=== PATIENT | female | born 1960 | race Caucasian/White ===

== ENCOUNTER 2019-07-24 07:58 | Observation (INO) | payer BC ==
--- OUTSIDE RECORDS SUMMARY | 2019-07-24 08:04 | XMS REPORT | Continuity of Care Document ---
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 Medicine Problems Description No Information Available Social History Type Date Description Comments Sex Unknown Tobacco Use Start: Unknown Never Smoked Cigarettes Tobacco Use Start: Unknown Never Smoked Cigars Tobacco Use Start: Unknown Never Smoked A Pipe Smokeless Tobacco Never Used Smokeless Tobacco ETOH Use Currently occasionally consumes alcohol Allergies, Adverse Reactions, Alerts Active Allergies Reaction Severity Comments Date Prednisone Hives 07/17/2019 Medications Active Medications SIG Qnty Indications Ordering Provider Date Ondansetron 4mg Unknown Tablets Dispers Immunizations Description No Information Available Vital Signs Date Vital Result Comment 07/17/2019 9:25am Weight 185.00 lb Weight 83.916 kg Height 70 inches 5'10" Height in cm's 177.8 cm BMI (Body Mass Index) 26.5 kg/m2 Results Description No Information Available Procedures Date Code Description Status 07/17/2019 32904 Tympanometry Completed 07/17/2019 95507 Comprehensive Audiogram Completed Medical Devices Description No Information Available Encounters Type Date Location Provider Dx Diagnosis Office Visit 07/17/2019 [facility] 07-01-2019 Lorenzo Moreno MD R42 Dizziness and 9:30a giddiness H90.5 Unspecified sensorineural hearing loss Assessments Date Code Description Provider 07/17/2019 R42 Dizziness and giddiness Lorenzo Moreno MD 07/17/2019 H90.5 Unspecified sensorineural hearing loss Lorenzo Moreno MD Plan of Treatment 07/17/2019 - Lorenzo Moreno MDR42 Dizziness and giddinessComments:Her symptoms that are most recent, do not represent in my opinion a high probability of being an inner ear disorder, this may be related to some gastrointestinal issues , may be related to anxiety symptoms. She is going to have a workup done by her primary care physician at this point I suspect that she may also introduced the idea that this could be sort of us anxiety panic disorder that may be contributing to her symptoms her ears appear to be stable and no further investigations and those ears are necessary at this timeH90.5 Unspecified sensorineural hearing loss Functional Status Description No Information Available Mental Status Description No Information Available Referrals Description No Information Available
--- OUTSIDE RECORDS SUMMARY | 2019-07-24 08:04 | XMS REPORT | Continuity of Care Document ---
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 Medicine Problems Description No Information Available Social History Type Date Description Comments Sex Unknown ETOH Use Social Alcohol Tobacco Use Start: Unknown Patient has never smoked Smoking Status Reviewed: 07/17/19 Patient has never smoked Enjoy Exercising Enjoys exercising Exercise Type/Frequency Exercises regularly walking Allergies, Adverse Reactions, Alerts Active Allergies Reaction Severity Comments Date Prednisone heartburn/acid reflux 07/17/2019 Cat Dander 07/17/2019 Mold 07/17/2019 Medications Description No Active Medications Immunizations Description No Information Available Vital Signs Date Vital Result Comment 07/17/2019 3:19pm BP Systolic 110 mmHg BP Diastolic 70 mmHg Heart Rate 84 /min Body Temperature 97.9 F Respiratory Rate 16 /min Height 70 inches 5'10" Weight 185.00 lb BMI (Body Mass Index) 26.5 kg/m2 Results Test Acquired Date Facility Test Result H/L Range Note Laboratory test 07/10/2019 [facility] Lactic Acid 1.1 mmol/L Normal 0.5-2.0 1 finding Comp Metabolic 07/10/2019 [facility] Sodium 140 mmol/L Normal 135-145 Panel Potassium 3.6 mmol/L Normal 3.5-5.0 Chloride 106 mmol/L Normal 101-111 Co2 Carbon Dioxide 26 mmol/L Normal 22-32 Anion Gap 8 mmol/L Normal 2-11 Glucose 102 mg/dL High 70-100 Blood Urea Nitrogen 16 mg/dL Normal 6-24 Creatinine 0.65 mg/dL Normal 0.51-0.95 BUN/Creatinine Ratio 24.6 High 8-20 Calcium 9.4 mg/dL Normal 8.6-10.3 Total Protein 6.5 g/dL Normal 6.4-8.9 Albumin 4.3 g/dL Normal 3.2-5.2 Globulin 2.2 g/dL Normal 2-4 Albumin/Globulin Ratio 2.0 Normal 1-3 Total Bilirubin 0.60 mg/dL Normal 0.2-1.0 Alkaline Phosphatase 78 U/L Normal 34-104 Alt 15 U/L Normal 7-52 Ast 15 U/L Normal 13-39 Egfr Non- 92.7 >60 Egfr 112.1 >60 2 Laboratory test finding 07/10/2019 [facility] Magnesium 2.1 mg/dL Normal 1.9- 2.7 Troponin-I (TnI) 0.00 ng/mL <0.03 3 TSH (Thyroid Stim Horm) 0.63 mcIU/mL Normal 0.34-5.60 1 [facility] Severe Sepsis and Septic Shock Management Bundle Measure requires all lactic acids initially measuring >2.0 mmol/L be repeated. 2 Because ethnic data is not always readily available, this report includes an eGFR for both -Americans and non- Americans. The National Kidney Disease Education Program (NKDEP) does not endorse the use of the MDRD equation for patients that are not between the ages of 18 and 70, are , have extremes of body size, muscle mass, or nutritional status, or are non- or non-. According to the National Kidney Foundation, irrespective of diagnosis, the stage of the disease is based on the level of kidney function: Stage Description GFR(mL/min/1.73 m(2)) 1 Kidney damage with normal or decreased GFR 90 2 Kidney damage with mild decrease in GFR 60-89 3 Moderate decrease in GFR 30-59 4 Severe decrease in GFR 15-29 5 Kidney failure <15 (or dialysis) 3 Troponin-I testing on Plasma Separator Tubes (PST) has a known false positive rate of 0.20-0.40%. All positive troponins reflex immediately to secondary confirmatory testing. Using the Plink DxI 800 Access Immunoassay systems, the 99th percentile upper reference limit was demonstrated to be < 0.03 ng/mL. Procedures Date Code Description Status 07/01/2016 18069082 Mammogram Completed Medical Devices Description No Information Available Encounters Description No Information Available Assessments Date Code Description Provider 07/17/2019 F43.22 Adjustment disorder with anxiety Alexis Mcginnis MD Plan of Treatment 07/17/2019 - Alexis Mcginnis MDF43.22 Adjustment disorder with anxietyAllNew Medication:No Active Medications -Comments:Medication Management Patient Understands medications she's taking? Yes No Are there Barriers to Adherence? Yes No Has the patient been asked about herbal supplements and therapies, and OTC meds? Yes No Functional Status Description No Information Available Mental Status Description No Information Available Referrals Description No Information Available
[2019-07-24] MEDS ORDERED: NS 0.9% 1000 ML** 1,000 ML IV ONE ×3 (08:23→12:30)
--- NOTE | 2019-07-24 08:24 | ED ---
Abdominal Pain/Female - HPI Summary HPI Summary: 59 year old F [facility] accompanied by spouse complains of gaseous pain since last night 07/23/2019 that led to an uncontrollable passing of a large amount of bright red blood rectally. Patient reports attempting to have a bowel movement at midnight to no avail and experienced an episode of diaphoresis as she stood up. She experienced lower abd pain after and took marielena- seltzer which did not help. Continued attempts at bowel movements resulted in small amounts of soft stool. Episode of rectal blood passing happened at around 0600 07/24/2019. Patient denies fever, nausea, emesis, CP, dysuria, and hematuria. PMHx of sensitive stomach and vestibular neuritis. No PMHx of HTN, diabetes, hemorrhoids noted. FMHx of colon CA or cardiac issues denied. The patient rates the pain 3/10 in severity. Symptoms aggravated by nothing. Symptoms alleviated by nothing. - History of Current Complaint Chief Complaint: EDRectalPain Stated Complaint: RECTAL BLEEDING PER PT Time Seen by Provider: 07/24/19 08:07 Hx Obtained From: Patient Onset/Duration: Sudden Onset, Still Present Severity Currently: Mild Pain Intensity: 3 Pain Scale Used: 0-10 Numeric Location: Other - Lower abd Aggravating Factor(s): Nothing Alleviating Factor(s): Nothing Associated Signs and Symptoms: Positive: Diaphoresis, Other: - positive - uncontrollable rectal blood release negative - CP. Negative: Fever, Urinary Symptoms - negative dysuria and hematuria, Nausea, Vomiting Allergies/Adverse Reactions: Allergies Allergy/AdvReac Type Severity Reaction Status Date / Time prednisone Allergy GI Upset Verified 07/24/19 08:03 PMH/Surg Hx/FS Hx/Imm Hx Sensory History: Denies: Hx Legally Blind, Hx Deafness Opthamlomology History: Denies: Hx Legally Blind Infectious Disease History: No Infectious Disease History: Denies: Traveled Outside the [place] in Last 30 Days - Family History Known Family History: Positive: Cardiac Disease, Other - no FMHx of vestibular neuritis or colon CA - Social History Alcohol Use: Rare Substance Use Type: Reports: None Smoking Status (MU): Never Smoked Tobacco Review of Systems Positive: Skin Diaphoresis. Negative: Fever Negative: Chest Pain Positive: Abdominal Pain - lower abd, Other - episode of uncontrollable rectal blood passing . Negative: Vomiting, Nausea Negative: dysuria, hematuria All Other Systems Reviewed And Are Negative: Yes Physical Exam - Summary Physical Exam Summary: Constitutional: Well-developed, Well-nourished, Alert. (-) Distressed Skin: Warm, Dry HENT: Normocephalic; Atraumatic Eyes: Conjunctiva normal Neck: Musculoskeletal ROM normal neck. (-) JVD, (-) Stridor, (-) Tracheal deviation Cardio: Rhythm regular, rate normal, Heart sounds normal; Intact distal pulses; The pedal pulses are 2+ and symmetric. Radial pulses are 2+ and symmetric. (-) Murmur Pulmonary/Chest wall: Effort normal. (-) Respiratory distress, (-) Wheezes, (-) Rales Abd: soft, non-distended. Suprapubic/LLQ abd tenderness. Rectal: no visible hemorrhoids. CARLOS-BRBPR Musculoskeletal: (-) Edema Lymph: (-) Cervical adenopathy Neuro: Alert, Oriented x3 Psych: Mood and affect Normal Triage Information Reviewed: Yes Vital Signs On Initial Exam: Initial Vitals Temp Pulse Resp BP Pulse Ox 98.6 F 93 20 122/81 100 07/24/19 07:59 07/24/19 07:59 07/24/19 07:59 07/24/19 07:59 07/24/19 07:59 Vital Signs Reviewed: Yes Procedures - Sedation Patient Received Moderate/Deep Sedation with Procedure: No Diagnostics - Vital Signs Vital Signs Temp Pulse Resp BP Pulse Ox 07/24/19 08:10 84 117/73 98 07/24/19 08:09 81 97 07/24/19 07:59 98.6 F 93 20 122/81 100 - Laboratory Result Diagrams: 07/24/19 08:28 07/24/19 08:28 Lab Statement: Any lab studies that have been ordered have been reviewed, and results considered in the medical decision making process. - CT CT Abd/Pelvis CT Interpretation Completed By: Radiologist Summary of CT Findings: IMPRESSION: #. Probable hepatic hemangiomas. Nonemergent ultrasound of the liver suggested for. further characterization. # . Normal appendix documented. #. Suggestion of potential mild colitis involving the descending and sigmoid colon. has reviewed this report. Re-Evaluation - Re-Evaluation 1052 Re-Evaluation Time: 10:52 Change: Worse Comment: Pt had developed diarrhea and increased HR. NS given. Abdominal Pain Fem Course/Dx - Course Course Of Treatment: 59 year old F presenting to [facility] complains of gaseous pains since last night 07/23/2019 that led to an uncontrollable passing of a large amount of bright red blood rectally. Physical exam findings: Abd: Suprapubic/LLQ abd tenderness. Rectal: no visible hemorrhoids. CARLOS-BRBPR. Bloodwork results with no significant abnormalities except for H MCH, H Absolute Neuts (auto), L Absolute Lymphs (auto), L Total Protein. A CT Abd/ Pelvis shows Probable hepatic hemangiomas. Nonemergent ultrasound of the liver suggested for further characterization. Normal appendix documented. Suggestion of potential mild colitis involving the descending and sigmoid colon. In the ED course, the patient was given NS. We discussed patient care with Dr.Foor- Powell at 1220 who recommended ordering stool studies and admission for observation and GI consult. The patient will be admitted to the hospitalist, Dr. Garcia. The patient is agreeable with this plan. - Diagnoses Provider Diagnoses: Colitis, Rectal bleeding - Provider Notifications Discussed Care Of Patient With: Anila Rivera Time Discussed With Above Provider: 12:22 Instructed by Provider To: Admit As Inpatient - Recommended stool studies and admit for observation and GI consult. Patient's case was subsequently discussed with Dr. Garcia, who accepts the patient for admission. Discharge ED - Sign-Out/Discharge Documenting (check all that apply): Patient Departure - Admit - Discharge Plan Condition: Stable Disposition: ADMITTED TO [facility] Referrals: Alexis Mcginnis MD [Primary Care Provider] - - Billing Disposition and Condition Condition: STABLE Disposition: Admitted to [facility] - Attestation Statements Document Initiated by Juanchoibe: Yes Documenting Scribe: Chava Singh Provider For Whom Sylvain is Documenting (Include Credential): DO Juancho Hernándezibpatience Attestation: Chava Figueroa scribed for Parish Evangelista DO on 07/24/19 at 1344. Scribe Documentation Reviewed: Yes Provider Attestation: The documentation as recorded by the Chava sprague accurately reflects the service I personally performed and the decisions made by me, Parish Evangelista DO Status of Scribe Document: Viewed
[2019-07-24 08:36] LABS: ABS Lymphocytes 0.6 10^3/ul (1.0-4.8); ABS Monocytes 0.6 10^3/ul (0-0.8); ABS Neutrophils 7.9 10^3/ul (1.5-7.7); Eosinophil % 0.5 %; Hematocrit 41 % (35-47); Hemoglobin 14.3 g/dL (12.0-16.0); Lymphocyte % 6.7 %; Mean Corpuscular HGB Conc 35 g/dL (31-36); Mean Corpuscular Hemoglobin 32 pg (27-31); Mean Corpuscular Volume 92 fL (80-97); Mean Platelet Volume 8.8 fL (7.4-10.4); Nucleated Red Blood Cells % 0.1; Platelet Count 191 10^3/uL (150-450); Red Blood Count 4.49 10^6 /uL (3.70-4.87); Red Cell Distribution Width 13 % (10-15); White Blood Count 9.2 10^3/uL (3.5-10.8)
[2019-07-24 08:48] LABS: Activated Partial Thrombo Time 33.2 seconds (26.0-38.0); INR 1.05 (0.82-1.09)
[2019-07-24 08:54] LABS: Albumin 3.9 g/dL (3.2-5.2); Albumin/Globulin Ratio 1.7 (1-3); BUN/Creatinine Ratio 16.4 (8-20); C Reactive Protein 1.42 mg/L (<8.01); EGFR African American 108.3 (>60); EGFR Non-African American 89.5 (>60); Globulin 2.3 g/dL (2-4); Potassium 3.8 mmol/L (3.5-5.0); Total Bilirubin 0.8 mg/dL (0.2-1.0); Total Protein 6.2 g/dL (6.4-8.9)
[2019-07-24 10:10] LABS: Erythrocyte Sed Rate 6 mm/Hr (0-29)
[2019-07-24] MEDS ORDERED: Iohexol 300* (CONTRAST) 10 ML SDV IV ONE (10:35)
[2019-07-24] MEDS ORDERED: NS 0.9% 1000 ML** 1,000 ML IV SCH (12:45)
--- NOTE | 2019-07-24 14:33 | HP ---
CC: Alexis Mcginnis MD HISTORY AND PHYSICAL: DATE OF ADMISSION: 07/24/19 PRIMARY CARE PHYSICIAN: Alexis Mcginnis MD HEALTHCARE PROXY: Colby, her . Phone number [phone]. CODE STATUS: Full. CHIEF COMPLAINT: Several hours of lower abdominal pain with bright red blood per rectum. HISTORY OF PRESENT ILLNESS: Ms. Root is a healthy 59-year-old woman who is presenting with acute gastrointestinal bleeding. She reports being in her usual state of health up until she went to bed last night. However, at 12:30 this morning, she was awoken by crampy lower abdominal pain. She went to the bathroom thinking she may have just needed to urinate or pass gas. She states she had normal urine output, but no gas or bowel movement, but the crampy abdominal pain persisted, so she had a couple [place], which did not improve the pain. However, later she had the urgent need to use the bathroom again and this time she reports passing a significant amount of blood without stool. Given the amount of blood, she and her decided to present to the emergency room. The patient is not on blood pressure medication. She has had no recent surgeries. She has had good appetite recently. She denies fevers, chills, chest pain, shortness of breath, dysuria, or new rash. She reports a history of vestibular neuritis, for which she experienced a recurrence of symptoms approximately 2 weeks ago, which improved with ondansetron. She reports a few days of constipation after her anti-nausea medications; however, over the last week, her bowel movements have been normal. PAST MEDICAL HISTORY: Vestibular neuritis. MEDICATIONS: Home medications, the patient denies. ALLERGIES: 1. Short course of PREDNISONE caused significant intense heartburn. 2. BENADRYL caused acute mental status changes and confusion. FAMILY HISTORY: The patient's mother passed at 95 and father passed at 86, both of heart disease. The patient has 2 brothers with myocardial infarctions and 1 sister with multiple sclerosis. 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 She recently moved to [place] to retire with her , who she lives with. She denies history of tobacco or recreational drug use, and she has social alcohol only. REVIEW OF SYSTEMS: Complete 10-point review of systems was performed. Pertinent positives and negatives are listed in the HPI. PHYSICAL EXAMINATION GENERAL: She is a well-appearing woman in no acute distress. She is alert and interactive, very pleasant. VITAL SIGNS: Afebrile, hear rate 70s, blood pressure 132/78, oxygen saturation 100% on room air, respiratory rate 12. HEENT: Sclerae anicteric. No pallor. Moist mucous membranes. NECK: No JVD. Supple. Full range of motion intact without pain. LUNGS: Clear to auscultation bilaterally. HEART: Regular rate and rhythm. No murmurs, gallops ,or rubs. ABDOMEN: Soft, nondistended. No organomegaly. Mild tenderness to palpation in left lower quadrant without guarding or rebound. EXTREMITIES: Warm and well perfused without evidence of edema. NEUROLOGIC: A and O x3. No focal neuro deficits. DIAGNOSTIC STUDIES: CBC unremarkable with hemoglobin 14.3. BMP, LFTs and coags completely within normal limits. Abdomen and pelvis CT with probable hepatic hemangiomas. Nonemergent ultrasound of the liver suggested for further characterization. Normal appendix documented. Suggestion of potential mild colitis involving the descending and sigmoid colon segments. Negative for evidence for bowel perforation or perienteric abscess. Negative for ascites or free air. ASSESSMENT AND PLAN: Ms. Root is a 59-year-old healthy woman who is presenting with acute onset of crampy lower abdominal pain with bright red blood per rectum with hemoglobin normal and CT findings concerning for colitis. 1. Lower gastrointestinal bleed, likely from colitis seen on imaging. Hemoglobin is stable. Etiology is infectious versus inflammatory. Ischemic, as well, but the patient does not have evidence of recent transient hypotension. Per GI consult, she will kept n.p.o. with repeat CBC with plan for possible flexible sigmoidoscopy. 2. DVT prophylaxis. The patient is ambulatory and can have SCDs when sitting in bed. 3. Code status, full. TIME SPENT: Approximately 60 minutes was spent on admission of this patient, more than half of which is spent at bedside for interview and exam. [id number]/CPS #: [id number] [facility]
[2019-07-24 14:38] LABS: Hematocrit 40 % (35-47); Hemoglobin 13.9 g/dL (12.0-16.0); Mean Corpuscular HGB Conc 35 g/dL (31-36); Mean Corpuscular Hemoglobin 32 pg (27-31); Mean Corpuscular Volume 92 fL (80-97); Mean Platelet Volume 8.7 fL (7.4-10.4); Platelet Count 194 10^3/uL (150-450); Red Blood Count 4.33 10^6 /uL (3.70-4.87); Red Cell Distribution Width 13 % (10-15); White Blood Count 9.5 10^3/uL (3.5-10.8)
[2019-07-24] MEDS ORDERED: fentaNYL* 50 MCG/ML 2 ML VIAL (100 MCG VIAL) ONE (16:54)
[2019-07-24] MEDS ORDERED: Midazolam* 1 MG/ML 10 ML VIAL (10 MG) ONE (16:54)
--- NOTE | 2019-07-24 18:18 | CONS ---
CC: Dr. Miriam Garcia CONSULTATION REPORT: DATE OF CONSULT: 07/24/19 REQUESTING PROVIDER: Dr. Miriam Garcia. REASON FOR CONSULT: Abdominal pain, rectal bleeding, and abnormal CT. HISTORY OF PRESENT ILLNESS: Ms. Root is a 59-year-old with a history of vestibular neuritis, who is admitted with acute onset abdominal pain and rectal bleeding. Ms. Root was in usual state of health until the early hours of Saturday morning. She woke up at 12:30 a.m. with left-sided "gas-type" abdominal pain. She tried to have a bowel movement without success. She became diaphoretic. She eventually fell asleep and woke up around 6 or 7 a.m. She then tried to pass gas and instead passed a large amount of bright red bloody stool. She has had multiple similar episodes of brown stool mixed with bright red blood and clots. Continues to have mild to moderate left mid and left lower quadrant pain. No upper GI symptoms. She has a history of IBS type symptoms particularly with anxiety. No prior history of rectal bleeding. At baseline, the patient has a bowel movement daily. She denies any recent antibiotics. No travel or recent sick contacts. No prior colonoscopy. PAST MEDICAL HISTORY: Vestibular neuritis. PAST SURGICAL HISTORY: Tonsillectomy and removal of adenoids. MEDICATIONS: None regularly. ALLERGIES: To PREDNISONE and GENERIC BENADRYL. FAMILY HISTORY: No known GI or liver issues. Heart disease in her family. SOCIAL HISTORY: . Retired. 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 Rents a house in [place]. She is a social drinker. No tobacco or drug use. REVIEW OF SYSTEMS: A complete review of systems is negative except as mentioned above. PHYSICAL EXAM: Vital Signs: Afebrile, heart rate in the 70s to 80s, blood pressure 128/84, 98 % on room air. General: Comfortable appearing woman. Mildly anxious. at bedside and attentive. HEENT: Mucous membranes moist. Cardiovascular: Regular rate and rhythm. Pulmonary: Breathing comfortably. Abdomen: Soft, nondistended. Mild tenderness in the left suprapubic area and left lower quadrant. No rebound tenderness or guarding. Extremities: No significant edema. Skin: No jaundice or rash on examined areas of the skin. DIAGNOSTIC STUDIES/LAB DATA: Labs reviewed. White count 9.5, hemoglobin 14.3 on admission and down to 13.9 after several hours. Labs from 07/10/19 demonstrated hemoglobin of 14.7. INR 1.05. Comprehensive panel normal with the exception of a slightly low total protein level of 6.2. Imaging: CT abdomen and pelvis was performed this morning. This demonstrated possible hepatic hemangiomas as well as potential mild colitis in the descending and sigmoid colon. Otherwise unremarkable exam. IMPRESSION AND RECOMMENDATIONS: Ms. Root is a 59-year-old woman with history of vestibular neuritis, who is admitted with acute left lower abdominal discomfort and rectal bleeding. Vital signs are stable. Labs are unremarkable. Imaging demonstrates possible mild colitis in the descending and sigmoid colon. The patient continues to pass significant amounts of bright red blood per rectum. Leading possibilities include ischemic colitis, ischemic colitis, and diverticular bleeding. Inflammatory bowel disease less likely given acuity of symptom onset. - Please send C diff, stool culture, O&P - Please given 2 tap water enemas now. - NPO. Plan for flex sig this afternoon. Thank you very much for this consult. GI will continue to follow. [id number]/[facility] #: [id number] [facility]ITALChris
--- NOTE | 2019-07-24 18:23 | PN ---
Progress Note - Progress Note Date of Service: 07/24/19 Note: BRIEF GI PROCEDURE NOTE Gastroscope advanced to mid/distal sigmoid. No blood seen. From 20 to ~30 cm ( proximal most extent examined today), there was significantly edematous and erythematous mucosa with overlying white exudate (and ?superficial ulcers). No gangrenous changes noted. Rectum was mildly erythematous with possible blurring of vascular markings. Biopsies obtained. Favor moderate severity ischemic colitis. Differential also includes: infectious colitis and ulcerative colitis. Patient should be kept NPO and given IV fluids (Supportive care). Start IV antibiotics (Cipro/Flagyl) Ensure: C Diff, stool culture, O&P are sent. Check CBC, CMP, CRP daily. No clear risk factors for ischcmic colitis. Recommend mesenteric vessel doppler ultrasound. Await biopsies. Notify GI (and consult surgery) if any significant acute clinical change. GI will continue to follow along. Anila Rivera MD Gastroenterology
--- NOTE | 2019-07-24 18:36 | PN ---
Hospitalist Progress Note Date of Service: 07/24/[address] Garcia Called by Dr Gloria Powell after patient's scope. Recommends patient be kept NPO with IV fluids. Start IV Cipro and Flagyl. Order C Diff, stool culture, O&P (giardia/cryptosp). Daily CBC, CMP, CRP. Scope showed ischemic colitis, but no clear risk factors. Recommend mesenteric vessel doppler ultrasound. Notify GI (and consult surgery) if any significant acute clinical change - will s/o to Dr Muniz.
--- NOTE | 2019-07-24 19:15 | PRO ---
CC: Dr. Miriam Garcia; Dr. Alexis Mcginnis PROCEDURE REPORT: DATE OF PROCEDURE: 07/24/19 PROCEDURE: Flex sig with biopsy. REFERRING PROVIDER: Dr. Miriam Garcia. PRIMARY PROVIDER: Dr. Alexis Mcginnis. INDICATION: The patient presented with left lower quadrant pain and rectal bleeding. CT suggested possible colitis in sigmoid and descending. MEDICATIONS GIVEN: 1. Midazolam 6 mg IV. 2. Fentanyl 50 mcg IV. DESCRIPTION OF PROCEDURE: Full disclosure of risks was reviewed with the patient as detailed on the consent form. The patient was placed in the left lateral decubitus position and monitored with continuous pulse oximetry, capnography, interval blood pressure monitoring, and direct observation. After anorectal examination was performed, the pediatric colonoscope was inserted into the rectum and slowly advanced forward to the rectosigmoid area. There was significant looping resulting in difficulty advancing the scope forward. The pediatric colonoscope was exchanged for an adult gastroscope. The adult gastroscope was advanced into the sigmoid colon. Procedure was aborted due to moderate severity colitis. The patient tolerated the procedure well and was recovered in the GI recovery area. Findings and interventions are described below. FINDINGS: Anorectal exam was unremarkable. Pediatric colonoscope was inserted into the rectum and slowly advanced forward. As mentioned above, there was looping in the pelvis with difficulty advancing forward. I elected to remove the pediatric colonoscope. Adult gastroscope was inserted into the rectum. This scope was able to better advance forward, particularly with the use of suprapubic and sigmoid abdominal pressure. Beginning at about 20 cm, there was diffuse mucosal erythema and edema with large amounts of white exudate overlying significant portions of the mucosa. Suspect that there were superficial ulcerations underneath the exudate. Scope was advanced to approximately 25 to 30 cm at which point there was significant luminal narrowing. There was no evidence of blue or purplish mucosa to suggest gangrenous mucosa. Decision was made to not advance the scope further given the severity of the colitis. Several small biopsies were obtained. Scope was slowly withdrawn. Around 20 cm, the mucosa became significantly less abnormal with only mild granular erythema and blurring of vascular markings seen throughout the rectum. No blood seen on this exam. Biopsies were obtained in the rectum as well. Retroflexion not performed given the colitis. Scope was withdrawn from the patient. The patient tolerated the procedure well and was recovered in the GI recovery area. IMPRESSION: 1. Flexible sigmoidoscopy to distal sigmoid. Challenging procedure necessitating change from pediatric colonoscope to adult gastroscope. 2. Beginning at 20 cm, there was diffusely edematous and erythematous mucosa with overlying white exudate. Findings most suspicious for ischemic colitis. Differential also includes infectious colitis, although this is not the classical appearance of pseudomembranous colitis. FOLLOWUP: 1. Await pathology. 2. Recommend keeping patient n.p.o. for tonight. IV fluids. If symptoms are improving, then could consider transition to clear diet tomorrow. 3. Recommend starting Cipro and Flagyl IV for now given concern for moderate severity colitis. 4. If any acute clinical change or significant worsening of abdominal pain, then I would recommend surgical consult. I did not see any gangrenous mucosa to warrant urgent surgical consult tonight. 5. Unclear as to why the patient would have developed ischemic colitis. There are no obvious risk factors. Would recommend mesenteric Doppler ultrasound during this admission to evaluate for any vascular abnormalities. 6. Please obtain stool culture, C diff, and O&P. Thank you very much for this consult. GI will continue to follow along. [id number]/[facility] #: [id number] LILI
[2019-07-24] MEDS: Ciprofloxacin 400MG IVPREMIX(* 400 MG/200 ML BAG IVPB SCH (19:52)
[2019-07-24] MEDS: NS 0.9% 1000 ML** 1,000 ML IV SCH (19:52)
[2019-07-24] MEDS: metroNIDAZOLE IV 500 MG/100ML* 500 MG/100 ML BAG IVPB SCH (22:51)
[2019-07-25] MEDS: metroNIDAZOLE IV 500 MG/100ML* 500 MG/100 ML BAG IVPB SCH ×3 (04:45→23:00)
[2019-07-25 05:53] LABS: ABS Eosinophils 0.2 10^3/ul (0-0.6); ABS Lymphocytes 1.1 10^3/ul (1.0-4.8); ABS Monocytes 0.7 10^3/ul (0-0.8); ABS Neutrophils 6.1 10^3/ul (1.5-7.7); Eosinophil % 2.7 %; Hematocrit 39 % (35-47); Hemoglobin 13.3 g/dL (12.0-16.0); Lymphocyte % 13.8 %; Mean Corpuscular HGB Conc 35 g/dL (31-36); Mean Corpuscular Hemoglobin 32 pg (27-31); Mean Corpuscular Volume 92 fL (80-97); Mean Platelet Volume 8.7 fL (7.4-10.4); Nucleated Red Blood Cells % 0.1; Platelet Count 174 10^3/uL (150-450); Red Blood Count 4.17 10^6 /uL (3.70-4.87); Red Cell Distribution Width 13 % (10-15); White Blood Count 8.1 10^3/uL (3.5-10.8)
[2019-07-25 06:09] LABS: Albumin 3.5 g/dL (3.2-5.2); Albumin/Globulin Ratio 1.8 (1-3); BUN/Creatinine Ratio 7.2 (8-20); C Reactive Protein 16.77 mg/L (<8.01); Calcium 8.5 mg/dL (8.6-10.3); EGFR African American 104.7 (>60); EGFR Non-African American 86.5 (>60); Potassium 3.8 mmol/L (3.5-5.0); Total Protein 5.5 g/dL (6.4-8.9)
--- NOTE | 2019-07-25 07:40 | PN ---
Subjective Date of Service: 07/25/19 Interval History: Underwent flex sig yesterday, most concerning for ischemic colitis. GI recommended to start IV abx and keep patient NPO with supportive care. No acute overnight events. Radiology reviewed CT Abd/Pelvis and states mesenteric vessels are widely patent , and given distribution of colitis, further new information from mesenteric doppler is highly unlikely. Patient states she is feeling better, would like to eat. Still passing blood clots and blood, no stool. Crampy abd pain has improved, but pt is experiencing caffeine-withdrawal headache. Objective Active Medications: Ciprofloxacin/Dextrose (Cipro 400 Mg Ivpremix(*)) 400 mg in 200 mls @ 200 mls/ hr IVPB Q12H MARÍA; Protocol Last Admin: 07/24/19 19:52 Dose: 200 mls/hr Metronidazole/Sodium Chloride (Flagyl 500 Mg Ivpb*) 500 mg in 100 mls @ 100 mls /hr IVPB Q8H MARÍA Last Admin: 07/25/19 04:45 Dose: 100 mls/hr Sodium Chloride (Ns 0.9% 1000 Ml) 1,000 mls @ 150 mls/hr IV PER RATE [facility] Last Admin: 07/24/19 19:52 Dose: 150 mls/hr Morphine Sulfate (Morphine Inj (Syringe))*) 2 mg IV Q4H PRN PRN Reason: PAIN - MILD Vital Signs - 8 hr 07/24/19 07/25/19 23:57 03:21 Temperature 98.0 F 98.1 F Pulse Rate 78 75 Respiratory 14 14 Rate Blood Pressure 95/56 99/59 (mmHg) O2 Sat by Pulse 95 98 Oximetry Oxygen Devices in Use Now: None Appearance: well appearing woman in NAD, alert and interactive Eyes: No Scleral Icterus Ears/Nose/Mouth/Throat: Clear Oropharnyx, Mucous Membranes Moist Neck: NL Appearance and Movements; NL JVP, Trachea Midline Respiratory: Symmetrical Chest Expansion and Respiratory Effort, Clear to Auscultation Cardiovascular: NL Sounds; No Murmurs; No JVD, RRR Abdominal: - - mild ttp over LLQ Lymphatic: No Cervical Adenopathy Extremities: No Edema Skin: No Rash or Ulcers Neurological: Alert and Oriented x 3 Result Diagrams: 07/25/19 05:27 07/25/19 05:27 Microbiology and Other Data: Microbiology 07/24/19 16:45 Stool Gross Appearance - Final Stool Stool Lactoferrin - Final 07/24/19 16:45 Stool Gross Appearance - Final Stool C. difficile DNA Amplification - Final 027 Presumptive NEGATIVE Toxigenic C.diff NEGATIVE 07/24/19 16:45 Stool Gross Appearance - Final Stool 07/24/19 08:20 Stool Occult Blood (SIRIA) - Final Stool Assess/Plan/Problems-Billing Assessment: 59 healthy woman presents with acute onset of crampy lower abdominal pain with BRBP, with hemoglobin normal and CT findings concerning for colitis. DDx includes infectious vs ischemic vs inflammatory. - Patient Problems (1) Colitis Comment: On flex sig, ischemic was most concerning, but pt without reason for recent hypotension, and CT Abd without atherosclerotic disease. Stool cultures pending for bacterial etiology. Also pending path. - appreciate GI recs: start clears, cont IVF, f/u stool cultures and O&P - on cipro/Flagyl (07/24 - ) (2) DVT prophylaxis Comment: No lovenox in setting of bleed. Pt ambulatory, with SCDs when in bed.
[2019-07-25] MEDS: Morphine INJ* 2 MG/ML 1 ML SYRINGE (TWO MG - NEW SYRINGE VERSION) IV PRN ×2 (08:00→13:09)
[2019-07-25] MEDS: Ciprofloxacin 400MG IVPREMIX(* 400 MG/200 ML BAG IVPB SCH ×2 (08:06→20:20)
[2019-07-25] MEDS: NS 0.9% 1000 ML** 1,000 ML IV SCH ×2 (08:07→18:14)
--- NOTE | 2019-07-25 15:02 | PN ---
Progress Note - Progress Note Date of Service: 07/25/19 Note: GI NOTE IE/S: - Underwent flex sig yesterday. From 20-30 cm (proximal most extent of exam), there was significant mucosal erythema, edema, and white exudate. Significant luminal narrowing at 30 cm. No gangrenous mucosa. Scope not advanced further. Appearance most consistent with ischemic colitis. - Doing "ok" this morning. Mild left-sided abdominal pain. Headache. Walking in hallway a few times today. O: VSS. Afebrile. Gen: Tired appearing, but NAD. HEENT: MMM CV: RRR PULM: Breathing comfortably. ABD: Soft and non-tender. Non-distended. No rebound tenderness or guarding. Labs reviewed. Normal CBC. CRP elevated to 16.7. C diff negative. Stool culture and O&P pending. A/P: 59yF w/ history of vestibular neuritis, who is admitted with acute L lower abdominal pain and rectal bleeding. CT with sigmoid and descending colitis. Flex sig with significant edema, erythema, and exudate. Findings most concerning for ischemic colitis. No clear precipitating factor or risk factor. Differential also includes: infectious colitis and Crohn's colitis. - Continue clear diet and maintenance IV fluids. Consider advancing diet tomorrow if doing well. - Continue Cipro/Flagyl for ischemic colitis coverage. Plan for 7 day course. - Await path from colon biopsies - Follow-up stool culture and O&P - Will arrange outpatient GI Follow-up. Will plan for colonoscopy in 6-8 weeks. Anila Rivera MD Gastroenterology
[2019-07-26] MEDS: NS 0.9% 1000 ML** 1,000 ML IV SCH (02:53)
[2019-07-26] MEDS: metroNIDAZOLE IV 500 MG/100ML* 500 MG/100 ML BAG IVPB SCH (05:06)
[2019-07-26 05:55] LABS: ABS Eosinophils 0.2 10^3/ul (0-0.6); ABS Lymphocytes 1.2 10^3/ul (1.0-4.8); ABS Monocytes 0.4 10^3/ul (0-0.8); ABS Neutrophils 4.1 10^3/ul (1.5-7.7); Eosinophil % 3.4 %; Hematocrit 39 % (35-47); Hemoglobin 13.4 g/dL (12.0-16.0); Lymphocyte % 20.9 %; Mean Corpuscular HGB Conc 34 g/dL (31-36); Mean Corpuscular Hemoglobin 32 pg (27-31); Mean Corpuscular Volume 92 fL (80-97); Mean Platelet Volume 8.6 fL (7.4-10.4); Nucleated Red Blood Cells % 0.1; Platelet Count 185 10^3/uL (150-450); Red Blood Count 4.22 10^6 /uL (3.70-4.87); Red Cell Distribution Width 13 % (10-15)
[2019-07-26] MEDS: Ciprofloxacin 400MG IVPREMIX(* 400 MG/200 ML BAG IVPB SCH (07:25)
--- NOTE | 2019-07-26 07:42 | PN ---
Subjective Date of Service: 07/26/19 Interval History: No acute events overnight. Will advance diet and switch to PO antibiotics, to finish one week course. Hgb has remained wnl throughout admission. Pt still with small amt of blood with BMs, but much less. Passed some solid stool today. Eager to go home. Objective Active Medications: Ciprofloxacin/Dextrose (Cipro 400 Mg Ivpremix(*)) 400 mg in 200 mls @ 200 mls/ hr IVPB Q12H MARÍA; Protocol Last Admin: 07/26/19 07:25 Dose: 200 mls/hr Metronidazole/Sodium Chloride (Flagyl 500 Mg Ivpb*) 500 mg in 100 mls @ 100 mls /hr IVPB Q8H MARÍA Last Admin: 07/26/19 05:06 Dose: 100 mls/hr Sodium Chloride (Ns 0.9% 1000 Ml) 1,000 mls @ 150 mls/hr IV PER RATE [facility] Last Admin: 07/26/19 02:53 Dose: 150 mls/hr Morphine Sulfate (Morphine Inj (Syringe))*) 2 mg IV Q4H PRN PRN Reason: PAIN - MILD Last Admin: 07/25/19 13:09 Dose: 2 mg Vital Signs - 8 hr 07/26/19 02:51 Temperature 97.3 F Pulse Rate 63 Respiratory 14 Rate Blood Pressure 103/62 (mmHg) O2 Sat by Pulse 96 Oximetry Oxygen Devices in Use Now: None Appearance: well appearing woman in NAD, at bedside Eyes: No Scleral Icterus Ears/Nose/Mouth/Throat: Clear Oropharnyx, Mucous Membranes Moist Neck: NL Appearance and Movements; NL JVP, Trachea Midline Respiratory: Symmetrical Chest Expansion and Respiratory Effort, Clear to Auscultation Cardiovascular: NL Sounds; No Murmurs; No JVD, RRR Abdominal: NL Sounds; No Tenderness; No Distention, No Hepatosplenomegaly Lymphatic: No Cervical Adenopathy Extremities: No Edema Skin: No Rash or Ulcers Neurological: Alert and Oriented x 3 Result Diagrams: 07/26/19 05:30 07/25/19 05:27 Microbiology and Other Data: Microbiology 07/24/19 16:45 Stool Gross Appearance - Final Stool Stool Lactoferrin - Final 07/24/19 16:45 Stool Gross Appearance - Final Stool C. difficile DNA Amplification - Final 027 Presumptive NEGATIVE Toxigenic C.diff NEGATIVE 07/24/19 16:45 Stool Gross Appearance - Final Stool 07/24/19 08:20 Stool Occult Blood (SIRIA) - Final Stool Assess/Plan/Problems-Billing Assessment: 59 healthy woman presents with acute onset of crampy lower abdominal pain with BRBP, with hemoglobin normal and CT findings concerning for colitis. DDx includes infectious vs ischemic vs inflammatory. - Patient Problems (1) Colitis Comment: On flex sig, ischemic was most concerning, but pt without reason for recent hypotension, and CT Abd without atherosclerotic disease. Stool cultures and O&P pending. Also pending path. - appreciate GI recs - on cipro/Flagyl (07/24 - 07/30) (2) DVT prophylaxis Comment: No lovenox in setting of bleed. Pt ambulatory, with SCDs when in bed.
[2019-07-26] MEDS ORDERED: metroNIDAZOLE TAB* 250 MG PO SCH (12:00)
[2019-07-26 16:33] VITALS: BP 114/64
[2019-07-26] MEDS ORDERED: Ciprofloxacin TAB* 500 MG PO SCH (19:00)
--- NOTE | 2019-07-26 19:59 | DS ---
CC: Dr. Alexis Mcginnis; Dr. Anila Rivera * DISCHARGE SUMMARY: DATE OF ADMISSION: 07/24/19 DATE OF DISCHARGE: 07/26/19 PRIMARY CARE PHYSICIAN: Dr. Alexis Mcginnis. PRIMARY DIAGNOSIS: Colitis. CONSULTS: Dr. Anila Rivera of GI. PROCEDURES: Sigmoidoscopy on 07/24/19. DISCHARGE MEDICATIONS: 1. Ciprofloxacin 500 mg twice a day for 4 more days. 2. Metronidazole 500 mg 3 times a day for 4 more days. 3. Ondansetron 4 mg every 6 hours as needed for nausea. HISTORY OF PRESENT ILLNESS: Ms. Root is a 59-year-old woman with a history of vestibular neuritis who is presenting with acute onset of gastrointestinal bleeding. She was in her usual state of health up until she had gone to bed on night before presentation. At 2:30 in the morning, she was awoken by crampy lower abdominal pain. She went to the bathroom thinking she may need to urinate or pass gas. She states she had normal urine output, but no gas or bowel movement. The crampy abdominal pain persisted and she took a couple [place] tablets which did not improve the pain. A few hours later, she had the urgent need to use the bathroom again, and this time, she reports passing a significant amount of blood without stool. Given the amount of blood, she and her presented to the emergency room for further care. The patient is not on blood pressure medicines. She has had no recent surgeries. Her appetite has been good. She denies fevers, chills, chest pain, shortness of breath, dysuria, or new rash. She reports a history of vestibular neuritis for which she experienced recurrence of symptoms approximately 2 weeks ago, which improved on ondansetron. She reports a few days of constipation after her antiemetics; however, over the last week, her bowel movements have been normal. HOSPITAL COURSE: Ms. Root was admitted to the hospital with a GI consult. Her CBC was checked frequently and was noted to have her hemoglobin within normal limits on each lab draw. She underwent a flexible sigmoidoscopy on day of presentation, which the patient tolerated well. The procedure was revealing of diffusely edematous and erythematous mucosa with overlying white exudate. Findings were most suspicious for ischemic colitis, although the differential also includes infectious. It was recommended that the patient be kept n.p.o. overnight with IV fluids and to be started on Cipro and Flagyl IV. Again, her hemoglobin remained stable throughout this time. While the patient was passing small amount of blood, her appetite was good and she was able to be advanced to clears and then a regular diet without issue. She was switched from IV to oral antibiotics, which she tolerated well. She had stool and O and P stool pending at time of discharge. Of note, she also had an abdomen and pelvis CT with contrast on day of admission which was reviewed with Radiology and showed patent abdominal arteries. The patient was eager for discharge and was set up with followup with our gastroenterology team. PERTINENT DIAGNOSTIC STUDIES: CBC: Unremarkable with hemoglobin within normal limits. BMP and LFTs: Normal. Abdomen and pelvis CT with probable hepatic hemangiomas, non emergent. Ultrasound of liver suggested for characterization. Normal appendix documented. Suggestion of potential mild colitis involving the descending and sigmoid colon segments. Negative for evidence for bowel perforation or perienteric abscess. Negative for ascites or free-air. Biopsies from sigmoidoscopy pending at the time of discharge as well as stool cultures and O and P. DISCHARGE PLAN: The patient was discharged to follow up with her primary care physician as well as Dr. Rivera of GI. She was given 4 more days of ciprofloxacin and metronidazole. She was educated to start with bland diet of soft foods and advance to regular foods as able. She was given return precautions which include, but are not limited to worsening of GI bleed or lightheadedness, palpitations, or recurrence of severe abdominal pain. She should resume activity as tolerated. DISPOSITION: To home. CONDITION: Good. TIME SPENT: Approximately 60 minutes was spent on the discharge of this patient , more than half of which was spent with care coordination at bedside for interview and exam. [id number]/[facility] #: [id number] LILI
== END 2019-07-26 14:00 | disposition home or self-care (01) ==
LOC: ED 07:58 → MED 12:42
PROVIDERS: ADMIT Internal Medicine; ATTEND Internal Medicine
DX: K52.9 Noninfective gastroenteritis and colitis, unspecified (principal); Z79.899 Other long term (current) drug therapy; K92.2 Gastrointestinal hemorrhage, unspecified; R93.89 Abnormal findings on diagnostic imaging of other specified body structures; R10.30 Lower abdominal pain, unspecified
CPT/HCPCS: 36415; 74177; 80053; 82270; 83630; 85025; 85027; 85610; 85652; 85730; 86140; 86850; 86900; 86901; 87045; 87046; 87077; 87328; 87329; 87493; 87899; 88305; 96365; 96366; 96367; 96375; 96376; 99156; 99157; 99285; A9270-GY; G0378; J0744; J2250; J2270; J3010; Q9967